=== PATIENT | male | born 1970 | race Caucasian/White ===

== ENCOUNTER 2018-03-21 01:05 | Emergency (ER) | payer OTHER ==
[~2018-03-21] VITALS: Ht 167.6 cm; Wt 81.6 kg
[2018-03-21 01:24] VITALS: BP 148/77
--- NOTE | 2018-03-21 01:24 | ED.ADGEN ---
Past History Past Medical History: Other Adult General Chief Complaint Chief Complaint ".. I had been drinking.. I tripped and fell.. and cut top my head... I am not going to stay... Just want it closed up.. or whatever... as quick as you can.. I am not going to get a tetanus shot.. I am not going to get a CT.. 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 No loss of consciousness. Pt. admit to alcohol intake. Pt. insistent he does not want a tetanus or CT. Pt. last tetanus more than `10 y rs. . Pt. ambulatory with out problems. Pt in company of his and son. Pt. laceration does not go thru entire dermis. No neck tenderness. No other injury reported. No travel or specific ill contacts. No hx of immunosuppression. Review of Systems Review of Systems Constitutional: Denies fever or chills [] Eyes: Denies change in visual acuity, redness, or eye pain [] HENT: Denies nasal congestion or sore throat []complaints of laceration to scalp Respiratory: Denies cough or shortness of breath [] Cardiovascular: No additional information not addressed in HPI [] GI: Denies abdominal pain, nausea, vomiting, bloody stools or diarrhea [] : Denies dysuria or hematuria [] Musculoskeletal: Denies back pain or joint pain [] Integument: Denies rash or skin lesions [] Neurologic: Denies headache, focal weakness or sensory changes [] Endocrine: Denies polyuria or polydipsia [] All other systems were reviewed and found to be within normal limits, except as documented in this note. Family History Family History Noncontributory Current Medications Current Medications Current Medications Medications (Trade) Dose Ordered Sig/Marielos Start Time Stop Time Status Last Admin Dose Admin Lidocaine HCl 20 ml 1X ONCE 03/21/18 02:00 03/21/18 02:01 DC 03/21/18 01:52 20 ML Allergies Allergies Allergies Coded Allergies Type Severity Reaction Last Updated Verified No Known Drug Allergies 03/21/18 No Physical Exam Physical Exam Constitutional: Well developed, well nourished, no acute distress, mildly intoxicated in appearance. [] HENT: Normocephalic, laceration as per history of present illness, bilateral external ears normal, oropharynx moist, no oral exudates, nose normal. []TMs clear. Eyes: PERRLA, EOMI, conjunctiva mild injection, no discharge. [] Neck: Normal range of motion, no tenderness, supple, no stridor. [] Cardiovascular:Heart rate regular rhythm, no murmur [] Lungs & Thorax: Bilateral breath sounds clear to auscultation [] Abdomen: Bowel sounds normal, soft, no tenderness, no masses, no pulsatile masses. [] Skin: Warm, dry, no erythema, no rash. [] Back: No tenderness, no CVA tenderness. [] Extremities: No tenderness, no cyanosis, no clubbing, ROM intact, no edema. [] Neurologic: Alert and oriented X 3, normal motor function, normal sensory function, no focal deficits noted. []DTRs +2 patella and brachial. Moves all extremities on request. Is ambulatory without problems. Psychologic: Affect mildly argumentative, judgement normal, mood normal. [] Current Patient Data Vital Signs Vital Signs Date Time Temp Pulse Resp B/P (MAP) Pulse Ox O2 Delivery O2 Flow Rate FiO2 03/21/18 01:24 98.2 91 16 98 Room Air EKG EKG [] Radiology/Procedures Radiology/Procedures Refuses CT[] Course & Med Decision Making Course & Med Decision Making Pertinent Labs and Imaging studies reviewed. (See chart for details). Patient refuses tetanus. Procedure note- laceration repair- laceration cleaned with normal saline. Injected edge laceration with 2% lidocaine. Re-irrigated laceration extensively with normal saline. Closed laceration with tendon jean-paul. Patient apply Polysporin 4 times a day. Patient keep area clean and dry until jean-paul removed. Patient return if any concerns. Patient given head injury precautions. Patient was discharged with and son . They seemed aware of following patient for mental status changes. Use OTC peroxide if cleaning needed prior to staple removal. [] Final Impression Final Impression 1. Laceration- 10 cm top of scalp 2. Head Injury[] Dragon Disclaimer Dragon Disclaimer This electronic medical record was generated, in whole or in part, using a voice recognition dictation system. IRASEMA LILLY MD Mar 21, 2018 01:24
[2018-03-21] MEDS: LIDOCAINE 2% 20 ML VIAL. IJ ONE (01:52)
== END 2018-03-21 02:05 | disposition home or self-care (01) ==
LOC: EDBD 01:05 → ER 01:05
DX: S01.01XA Laceration without foreign body of scalp, initial encounter (principal); W01.0XXA Fall on same level from slipping, tripping and stumbling without subsequent striking against object, initial encounter; Y93.89 Activity, other specified; Y92.89 Other specified places as the place of occurrence of the external cause; Y99.8 Other external cause status
CPT/HCPCS: 12004; 99283; J2001